=== PATIENT | male | born 1980 | race Caucasian/White ===

== ENCOUNTER 2018-08-02 12:53 | Inpatient (IN) | payer OTHER ==
[2018-08-02 14:08] VITALS: BMI 21.2
--- NOTE | 2018-08-02 17:50 | HP ---
"CIWA Score Nausea/Vomitin-Mild Nausea/No Vomiting Muscle Tremors: 7-Severe,w/o Arm Extended Anxiety: 1-Mildly Anxious Agitation: 4-Moderately Restless Paroxysmal Sweats: 4-Forehead w/Sweat Beads Orientation: 0-Oriented Tacttile Disturbances: 0-None Auditory Disturbances: 0-None Visual Disturbances: 0-None Headache: 0-None Present CIWA-Ar Total Score: 17 - Admission Criteria OASAS Guidelines: Admission for Medically Managed Detox: Requires at least one of the followin. CIWA greater than 12 2. Seizures within the past 24 hours 3. Delirium tremens within the past 24 hours 4. Hallucinations within the past 24 hours 5. Acute intervention needed for co occurring medical disorder 6. Acute intervention needed for co occurring psychiatric disorder 7. Severe withdrawal that cannot be handled at a lower level of care (continued vomiting, continued diarrhea, abnormal vital signs) requiring intravenous medication and/or fluids 8. Patient presents the following: CIWA greater than 12 Admission Criteria Met: Admission criteria met Admission ROS [facility] Chief Complaint: Here for alcohol withdrawal. Allergies/Adverse Reactions: Allergies Allergy/AdvReac Type Severity Reaction Status Date / Time No Known Allergies Allergy Verified 08/02/18 17:25 History of Present Illness: Alcohol use began at age 10. Nicotine use began at age 10. Denies seizures or blackouts. Denies any significant length of sobriety. Nasal abrasion- states fell on nose two days ago. Also injured (L) shoulder and (L) chest which he states does not hurt. Admitted to detox but will send to ER for (L) shoulder evaluation and x-ray, via ambulance. Report given to Dr. Aguirre. Patient is to be returned to [facility] detox unit. Patient returned from ER. X-ray of (L) shoulder bruised but w/o fx. Chest x- ray negative. Patient was medicated w/ percocet and hydrated while in ER. Search Terms: Mayur Bonneros, 1980 Search Date: 08/02/2018 05:43:55 PM The Drug Utilization Report below displays all of the controlled substance prescriptions, if any, that your patient has filled in the last twelve months. The information displayed on this report is compiled from pharmacy submissions to the Department, and accurately reflects the information as submitted by the pharmacies. This report was requested by: Marina Blanton | Reference #: [id number] There are no results for the search terms that you entered. Exam Limitations: No Limitations - Ebola screening Have you traveled outside of the country in the last 21 days: No Have you had contact with anyone from an Ebola affected area: No Have you been sick,other than usual withdrawal symptoms: No Do you have a fever: No - Review of Systems Constitutional: Chills, Diaphoresis, Changes in sleep (Difficulty staying asleep ) EENT: reports: Dental Problems (Front tooth pain r/t fall), Other (Pain in nose r/t fall) Cardiac: reports: No Symptoms Reported GI: reports: Diarrhea, Abdominal cramping : reports: No Symptoms Reported Musculoskeletal: reports: No Symptoms Reported Integumentary: reports: Lesions (Nose) Neuro: reports: Tremors Endocrine: reports: No Symptoms Reported Hematology: reports: No Symptoms Reported Psychiatric: reports: Judgement Intact, Orientated x3, Agitated, Anxious, Depressed (Denies thoughts of harming self or others) Patient History - Patient Medical History Hx Asthma: No Hx Cardiac Disorders: No Hx Hypertension: No Hx Seizures: No Hx Diabetes: No Hx Gastrointestinal Disorders: No Hx Sexually Transmitted Disorders: No Hx Renal Disease (ESRD): No Hx Human Immunodeficiency Virus (HIV): No (2018) - Patient Surgical History Past Surgical History: No - PPD History Previous Implant?: Yes Documented Results: Negative w/o proof Implanted On Prior R Admission?: No PPD to be Administered?: Yes - Smoking Cessation Smoking history: Current every day smoker Have you smoked in the past 12 months: Yes Aproximately how many cigarettes per day: 10 Hx Chewing Tobacco Use: No Initiated information on smoking cessation: Yes 'Breaking Loose' booklet given: 08/02/18 - Substance & Tx. History Hx Alcohol Use: Yes Hx Substance Use: Yes Substance Use Type: Alcohol Hx Substance Use Treatment: Yes (detox 1 year ago) - Substances Abused Alcohol Route: Oral Frequency: Daily Amount used: $30 BEER AND RUM Age of first use: 10 Date of Last Use: 08/02/18 Admission Physical Exam BHS - Vital Signs Vital Signs: Vital Signs - 24 hr 08/02/18 14:07 Temperature 99.1 F Pulse Rate 116 H Respiratory 20 Rate Blood Pressure 139/89 - Physical General Appearance: Yes: Mild Distress, Alcohol on Breath, Tremorous, Irritable , Sweating, Anxious HEENTM: Yes: EOMI (Mild jerking of eyes on lateral gaze), Hearing grossly Normal , Normocephalic, SHALIIN, Pharynx Normal, Lessions (Superficial abraision external nares), Other (Swelling and laceration inner upper lip. No increased erythema. No drainage. Tender to touch) Respiratory: Yes: Lungs Clear, Normal Breath Sounds, No Respiratory Distress Neck: Yes: No masses,lesions,Nodules, Supple Breast: Yes: Breast Exam Deferred Cardiology: Yes: Regular Rhythm, S1, S2, Tachycardia Abdominal: Yes: Soft, Increased Bowel Sounds, Tenderness (RUQ tenderness) Genitourinary: Yes: Within Normal Limits Back: Yes: Normal Inspection Musculoskeletal: Yes: Gait Steady, Joint Stiffness ((L) shoulder w/ stifness, decreased ROM, erythema and echimosos), Other ((L) chest tenderness.) Extremities: Yes: Normal Capillary Refill, Non-Tender, Tremors Neurological: Yes: refueler II-XII NML intact (Mild jerking of eyes on lateral gaze) Integumentary: Yes: Normal Color, Dry, Warm, Erythema (erythema and echimosos (L ) shoulder), Diaphoresis (Increased facial swelling) Lymphatic: Yes: Within Normal Limits - Diagnostic (1) Alcohol dependence with uncomplicated withdrawal Current Visit: Yes Status: Acute (2) Shoulder injury Current Visit: Yes Status: Acute Qualifiers: Encounter type: initial encounter Laterality: left Qualified Code(s): S49.92XA - Unspecified injury of left shoulder and upper arm, initial encounter Comment: X-ray negative for fracture. (3) Tachycardia Current Visit: Yes Status: Acute (4) Nicotine dependence, uncomplicated Current Visit: Yes Status: Chronic Qualifiers: Nicotine product type: cigarettes Qualified Code(s): F17.210 - Nicotine dependence, cigarettes, uncomplicated (5) Nystagmus Current Visit: Yes Status: Acute Comment: On lateral gaze Cleared for Admission S - Detox or Rehab [facility] Level of Care: Medically Managed Detox Regimen/Protocol: Librium [facility] Breath Alcohol Content Breath Alcohol Content: 0.215 Urine Drug Screen - Results Drug Screen Negative: No Urine Drug Screen Results: THC-Marijuana, BZO-Benzodiazepines"
[2018-08-02] MEDS ORDERED: chlordiazePOXIDE HCL 25 MG CAPSULE PO PRN ×2 (18:58→19:04)
[2018-08-02] MEDS ORDERED: MAG HYDROX/AL HYDROX/SIMETH 30 ML UNIT-DOSE CUP PO PRN (18:59)
[2018-08-02] MEDS ORDERED: P-EPHED 60MG/TRIPROLIDI 2.5MG TABLET PO PRN (18:59)
[2018-08-02] MEDS ORDERED: MAGNESIUM HYDROX 2400MG/30ML ORAL SUSPENSION 30 ML CUP PO PRN (18:59)
[2018-08-02] MEDS ORDERED: NICOTINE POLACRILEX 2 MG GUM BC PRN (18:59)
[2018-08-02] MEDS ORDERED: MAGNESIUM CITRATE 300 ML BOTTLE PO PRN (18:59)
[2018-08-02] MEDS ORDERED: LOPERAMIDE HCL 2 MG CAPSULE PO PRN (18:59)
[2018-08-02] MEDS ORDERED: IBUPROFEN 400 MG TABLET (FP) PO PRN ×2 (18:59→23:33)
[2018-08-02] MEDS ORDERED: MENTHOL/PHENOL 1 EACH UD MM PRN (18:59)
[2018-08-02] MEDS ORDERED: chlordiazePOXIDE HCL 25 MG CAPSULE PO SCH (23:00)
[2018-08-02] MEDS: THIAMINE HCL 100 MG TABLET (FP) PO SCH (23:54)
[2018-08-02] MEDS: chlordiazePOXIDE HCL 25 MG CAPSULE PO SCH (23:54)
[2018-08-02] MEDS: BACITRACIN 0.9 GM PACKET TP SCH (23:54)
[2018-08-02] MEDS: MELATONIN 5 MG TABLETS PO PRN (23:58)
[2018-08-03] MEDS: chlordiazePOXIDE HCL 25 MG CAPSULE PO SCH ×6 (01:00→22:16)
[2018-08-03] MEDS ORDERED: chlordiazePOXIDE HCL 25 MG CAPSULE PO PRN (04:42)
[2018-08-03] MEDS ORDERED: chlordiazePOXIDE HCL 25 MG CAPSULE PO SCH ×2 (05:00→23:00)
[2018-08-03] MEDS ORDERED: IBUPROFEN 600 MG TABLET (FP) PO PRN (08:55)
[2018-08-03] MEDS: PRENATAL VITAMINS W/ FOLIC ACID TABLET (FP) PO SCH (10:26)
[2018-08-03] MEDS: NICOTINE 14 MG/24 HOURS TOPICAL PATCH TD SCH (10:27)
[2018-08-03] MEDS: BACITRACIN 0.9 GM PACKET TP SCH ×2 (10:27→22:15)
[2018-08-03] MEDS ORDERED: NAPROXEN 500 MG TABLET (FP) PO ONE (13:15)
--- NOTE | 2018-08-03 14:00 | PN ---
[facility] CIWA - CIWA Score Nausea/Vomitin-No Nausea/No Vomiting Muscle Tremors: 3 Anxiety: 3 Agitation: 1-Slight > Activity Paroxysmal Sweats: 3 Orientation: 0-Oriented Tacttile Disturbances: 2-Mild Itch/Numbness/Burn Auditory Disturbances: 0-None Visual Disturbances: 2-Mild Sensitivity Headache: 0-None Present CIWA-Ar Total Score: 14 BHS Progress Note (SOAP) Subjective: Sweating, Tremors, Body Aches. Objective: PATIENT A & O X 3, OBSERVED AMBULATING ON UNIT. IN NO ACUTE DISTRESS. PATIENT'S LEFT ARM NOTED TO BE IN SLING. PATIENT HAD X-RAYS OF LEFT SHOULDER AND LEFT RIBCAGE DONE YESTERDAY (NO EVIDENCE OF GROSS FRACTURE NOTED IN WITHER AREA). 08/03/18 13:55 Vital Signs Temperature 98.9 F 08/03/18 13:24 Pulse Rate 104 H 08/03/18 13:24 Respiratory Rate 20 08/03/18 13:24 Blood Pressure 142/88 08/03/18 13:24 O2 Sat by Pulse Oximetry (%) ADMISSION LAB RESULTS PENDING. 08/03/18 13:56 Assessment: 08/03/18 13:56 WITHDRAWAL SYMPTOMS. Plan: CONTINUE DETOX. NAPROXEN BID FOR BODY ACHES / PAIN IN LEFT SHOULDER AND LEFT RIBCAGE.
[2018-08-03] MEDS: NAPROXEN 500 MG TABLET (FP) PO SCH (22:16)
[2018-08-03] MEDS: THIAMINE HCL 100 MG TABLET (FP) PO SCH (22:16)
[2018-08-03] MEDS: MELATONIN 5 MG TABLETS PO PRN (22:16)
[2018-08-04] MEDS ORDERED: chlordiazePOXIDE 5 MG CAPSULE PO SCH ×2 (05:00→23:00)
[2018-08-04] MEDS: chlordiazePOXIDE HCL 25 MG CAPSULE PO SCH ×4 (05:44→22:23)
--- NOTE | 2018-08-04 08:32 | EKG ---
Test Reason : Blood Pressure : / mmHG Vent. Rate : 084 BPM Atrial Rate : 084 BPM P-R Int : 170 ms QRS Dur : 092 ms QT Int : 384 ms P-R-T Axes : 064 064 029 degrees QTc Int : 453 ms NORMAL SINUS RHYTHM WITH SINUS ARRHYTHMIA LATERAL INFARCT , AGE UNDETERMINED ABNORMAL ECG NO PREVIOUS ECGS AVAILABLE Confirmed by JEANIE LOONEY MD ([id number]) on 08/04/2018 8:31:44 AM Referred By: Confirmed By:JEANIE LOONEY MD
[2018-08-04] MEDS: BACITRACIN 0.9 GM PACKET TP SCH ×2 (10:29→22:23)
[2018-08-04] MEDS: NAPROXEN 500 MG TABLET (FP) PO SCH ×2 (10:30→22:29)
[2018-08-04] MEDS: NICOTINE 14 MG/24 HOURS TOPICAL PATCH TD SCH (10:30)
[2018-08-04] MEDS: PRENATAL VITAMINS W/ FOLIC ACID TABLET (FP) PO SCH (10:30)
--- NOTE | 2018-08-04 12:58 | PN ---
S CIWA - CIWA Score Nausea/Vomitin Muscle Tremors: 3 Anxiety: 3 Agitation: 3 Paroxysmal Sweats: 3 Orientation: 0-Oriented Tacttile Disturbances: 0-None Auditory Disturbances: 0-None Visual Disturbances: 0-None Headache: 0-None Present CIWA-Ar Total Score: 14 BHS Progress Note (SOAP) Subjective: Tremor, interrupted sleep, c/o left shoulder pain and noted with abrasion to nose stating he fell outside on the street due to alcohol intoxication prior to his admission here. Objective: 08/04/18 12:56 Last Vital Signs Temp Pulse Resp BP Pulse Ox 98.8 F 80 16 109/64 08/04/18 10:00 08/04/18 10:00 08/04/18 10:00 08/04/18 10:00 Assessment: 08/04/18 12:57 Withdrawal symptoms Noted with abrasion on nose Plan: Continue detox Encouraged PO water intake Nose abrasion: continue bacitracin ointment
[2018-08-04] MEDS: THIAMINE HCL 100 MG TABLET (FP) PO SCH (22:23)
[2018-08-05] MEDS: hydrOXYzine PAMOATE 50 MG CAPSULE (FP) PO PRN (01:27)
[2018-08-05] MEDS ORDERED: chlordiazePOXIDE HCL 10 MG CAPSULE PO SCH ×2 (05:00→23:00)
[2018-08-05] MEDS: ACETAMINOPHEN 325 MG TABLET (FP) PO PRN ×2 (05:42→13:33)
[2018-08-05] MEDS: chlordiazePOXIDE 5 MG CAPSULE PO SCH ×4 (05:42→22:11)
[2018-08-05] MEDS: NICOTINE 14 MG/24 HOURS TOPICAL PATCH TD SCH (10:06)
[2018-08-05] MEDS: PRENATAL VITAMINS W/ FOLIC ACID TABLET (FP) PO SCH (10:07)
[2018-08-05] MEDS: NAPROXEN 500 MG TABLET (FP) PO SCH ×2 (10:07→22:11)
[2018-08-05] MEDS: BACITRACIN 0.9 GM PACKET TP SCH ×2 (10:07→22:11)
[2018-08-05 10:23] LABS: ALBUMIN 3.8 g/dl (3.4-5.0); ALK PHOS 88 U/L (45-117); ANION GAP 7 MMOL/L (8-16); BILIRUBIN,TOTAL 0.4 mg/dL (0.2-1); BLOOD UREA NITROGEN 6 mg/dL (7-18); CALCIUM 9.2 mg/dL (8.5-10.1); CHLORIDE 107 mmol/L (98-107); CO2 27 mmol/L (21-32); CREATININE 0.6 mg/dL (0.55-1.3); GLUCOSE,RANDOM 98 mg/dL (74-106); POTASSIUM 3.8 mmol/L (3.5-5.1); SGOT/AST 86 U/L (15-37); SGPT/ALT 102 U/L (13-61); SODIUM 141 mmol/L (136-145); TOT PROT 6.5 g/dl (6.4-8.2)
[2018-08-05 10:32] LABS: BASO % 0.9 % (0-2.0); EOS % 1.3 % (0-4.5); HEMATOCRIT 43.1 % (35.4-49); LYMPH % 15.6 % (8-40); MCH 35.6 pg (25.7-33.7); MCHC 34.9 g/dl (32.0-35.9); MEAN PLT VOLUME 7.8 fl (7.5-11.1); MONO % 9.1 % (3.8-10.2); NEUT % 73.1 % (42.8-82.8); PLATELET COUNT 334 K/MM3 (134-434); RBC 4.23 M/mm3 (4.00-5.60); WHITE BLOOD COUNT 6.1 K/mm3 (4.0-10.0)
[2018-08-05] MEDS: LIDOCAINE 5% TOPICAL PATCH TP SCH (15:12)
--- NOTE | 2018-08-05 15:28 | PN ---
S Progress Note (SOAP) Subjective: feeling better less tremor mild gi distress sweating Objective: 08/05/18 15:32 Vital Signs Temperature 98.2 F 08/05/18 14:00 Pulse Rate 109 H 08/05/18 14:00 Respiratory Rate 18 08/05/18 14:00 Blood Pressure 135/89 08/05/18 14:00 O2 Sat by Pulse Oximetry (%) Laboratory Last Values WBC 6.1 K/mm3 (4.0-10.0) 08/05/18 08:15 RBC 4.23 M/mm3 (4.00-5.60) 08/05/18 08:15 Hgb 15.0 GM/dL (11.7-16.9) 08/05/18 08:15 Hct 43.1 % (35.4-49) 08/05/18 08:15 MCV 102.0 fl (80-96) H 08/05/18 08:15 MCH 35.6 pg (25.7-33.7) H 08/05/18 08:15 MCHC 34.9 g/dl (32.0-35.9) 08/05/18 08:15 RDW 13.0 % (11.9-15.9) 08/05/18 08:15 Plt Count 334 K/MM3 (134-434) 08/05/18 08:15 MPV 7.8 fl (7.5-11.1) 08/05/18 08:15 Absolute Neuts (auto) 4.5 K/mm3 (1.5-8.0) 08/05/18 08:15 Neutrophils % 73.1 % (42.8-82.8) 08/05/18 08:15 Lymphocytes % 15.6 % (8-40) 08/05/18 08:15 Monocytes % 9.1 % (3.8-10.2) 08/05/18 08:15 Eosinophils % 1.3 % (0-4.5) 08/05/18 08:15 Basophils % 0.9 % (0-2.0) 08/05/18 08:15 Nucleated RBC % 0 % (0-0) 08/05/18 08:15 Sodium 141 mmol/L (136-145) 08/05/18 08:15 Potassium 3.8 mmol/L (3.5-5.1) 08/05/18 08:15 Chloride 107 mmol/L (98-107) 08/05/18 08:15 Carbon Dioxide 27 mmol/L (21-32) 08/05/18 08:15 Anion Gap 7 MMOL/L (8-16) L 08/05/18 08:15 BUN 6 mg/dL (7-18) L 08/05/18 08:15 Creatinine 0.6 mg/dL (0.55-1.3) 08/05/18 08:15 Creat Clearance w eGFR > 60 (>60) 08/05/18 08:15 Random Glucose 98 mg/dL (74-106) 08/05/18 08:15 Calcium 9.2 mg/dL (8.5-10.1) 08/05/18 08:15 Total Bilirubin 0.4 mg/dL (0.2-1) 08/05/18 08:15 AST 86 U/L (15-37) H 08/05/18 08:15 ALT 102 U/L (13-61) H 08/05/18 08:15 Alkaline Phosphatase 88 U/L (45-117) 08/05/18 08:15 Total Protein 6.5 g/dl (6.4-8.2) 08/05/18 08:15 Albumin 3.8 g/dl (3.4-5.0) 08/05/18 08:15 RPR Titer Nonreactive (NONREACTIVE) 08/05/18 08:15 lab noted Assessment: 08/05/18 15:33 withdrawal sx Plan: continue detox
[2018-08-05] MEDS ORDERED: LIDOCAINE PATCH REMOVAL MC SCH (22:00)
[2018-08-05] MEDS: THIAMINE HCL 100 MG TABLET (FP) PO SCH (22:11)
[2018-08-05] MEDS: MELATONIN 5 MG TABLETS PO PRN (22:13)
[2018-08-06] MEDS: ACETAMINOPHEN 325 MG TABLET (FP) PO PRN (03:25)
[2018-08-06] MEDS ORDERED: chlordiazePOXIDE HCL 10 MG CAPSULE PO SCH (05:00)
[2018-08-06 09:16] VITALS: BP 98/69; PULSE 64; TEMP 96.2
[2018-08-06] MEDS: PRENATAL VITAMINS W/ FOLIC ACID TABLET (FP) PO SCH (09:33)
[2018-08-06] MEDS: BACITRACIN 0.9 GM PACKET TP SCH (09:33)
[2018-08-06] MEDS: NICOTINE 14 MG/24 HOURS TOPICAL PATCH TD SCH (09:34)
[2018-08-06] MEDS: NAPROXEN 500 MG TABLET (FP) PO SCH (09:34)
[2018-08-06] MEDS: LIDOCAINE 5% TOPICAL PATCH TP SCH (09:34)
[2018-08-06] MEDS: hydrOXYzine PAMOATE 50 MG CAPSULE (FP) PO PRN (09:35)
--- NOTE | 2018-08-06 17:16 | DS ---
[facility] Detox Discharge Summary Admission Date: 08/02/18 Discharge Date: 08/06/18 - History Present History: Alcohol Dependence Additional Comments: PATIENT DECLINED AFTERCARE REFERRAL AND ELECTS TO GO HOME. [facility]' ([place], [place]) RECOMMENDED TO PATIENT POSSIBLE ALTERNATE AFTERCARE OPTION. COPIES OF REPORTS PERTAINING TO X-RAYS OF LEFT SHOULDER AND LEFT RIBCAGE GIVEN TO PATIENT AT TIME OF DISCHARGE FROM DETOX UNIT. PATIENT WAS DISCHARGED FROM DETOX UNIT IN STABLE MEDICAL CONDITION. Pertinent Past History: Nystagmus, Nicotine Dependence, History Of Left Shoulder Injury, History Of Tachycardia. - Physical Exam Results Vital Signs: Vital Signs Temperature 96.2 F L 08/06/18 09:15 Pulse Rate 64 08/06/18 09:15 Respiratory Rate 18 08/06/18 09:15 Blood Pressure 98/69 08/06/18 09:15 O2 Sat by Pulse Oximetry (%) Pertinent Admission Physical Exam Findings: WITHDRAWAL SYMPTOMS. Laboratory Tests 08/05/18 08/05/18 08/05/18 08:15 08:15 08:15 WBC 6.1 RBC 4.23 Hgb 15.0 Hct 43.1 MCV 102.0 H MCH 35.6 H MCHC 34.9 RDW 13.0 Plt Count 334 MPV 7.8 Absolute Neuts (auto) 4.5 Neutrophils % 73.1 Lymphocytes % 15.6 Monocytes % 9.1 Eosinophils % 1.3 Basophils % 0.9 Nucleated RBC % 0 Sodium 141 Potassium 3.8 Chloride 107 Carbon Dioxide 27 Anion Gap 7 L BUN 6 L Creatinine 0.6 Creat Clearance w eGFR > 60 Random Glucose 98 Calcium 9.2 Total Bilirubin 0.4 AST 86 H ALT 102 H Alkaline Phosphatase 88 Total Protein 6.5 Albumin 3.8 RPR Titer Nonreactive LABS NOTED. - Treatment Hospital Course: Detox Protocol Followed, Detoxed Safely, Responded well, Discharged Condition Good Patient has Accepted a Rehab Referral to: PATIENT DECLINES AFTERCARE REFERRAL. - Medication Discharge Medications: Ambulatory Orders NK [No Known Home Medication] 08/02/18 - Diagnosis (1) Alcohol dependence with uncomplicated withdrawal Status: Acute (2) Nystagmus Status: Acute (3) Shoulder injury Status: Acute Qualifiers: Encounter type: initial encounter Laterality: left Qualified Code(s): S49.92XA - Unspecified injury of left shoulder and upper arm, initial encounter (4) Tachycardia Status: Acute (5) Nicotine dependence, uncomplicated Status: Chronic Qualifiers: Nicotine product type: cigarettes Qualified Code(s): F17.210 - Nicotine dependence, cigarettes, uncomplicated - AMA Did Patient Leave Against Medical Advice: No
== END 2018-08-06 10:30 | disposition home or self-care (01) | DRG 775 ==
LOC: YASAS 12:53 → Y3N 23:25
PROC: HZ2ZZZZ Detoxification Services for Substance Abuse Treatment (ICD-10-PCS; principal; 2018-08-02)
DX: F10.230 Alcohol dependence with withdrawal, uncomplicated (principal); F17.210 Nicotine dependence, cigarettes, uncomplicated; H55.00 Unspecified nystagmus; R00.0 Tachycardia, unspecified; S49.82XA Other specified injuries of left shoulder and upper arm, initial encounter; S29.8XXA Other specified injuries of thorax, initial encounter; S00.31XA Abrasion of nose, initial encounter; W18.39XA Other fall on same level, initial encounter; Y93.89 Activity, other specified; Y92.414 Local residential or business street as the place of occurrence of the external cause; Y99.8 Other external cause status
CPT/HCPCS: 36415; 80053; 85025; 86593; 93005; 93010

== ENCOUNTER 2018-08-02 20:01 | Emergency (ER) | payer OTHER ==
[2018-08-02 20:07] VITALS: BP 148/86; PULSE 121; TEMP 98.9; BMI 30.2
--- NOTE | 2018-08-02 20:08 | PDOC ---
History of Present Illness - General History Source: Patient Exam Limitations: No Limitations - History of Present Illness Initial Comments: 08/02/18 21:20 The patient is a 37 year old male, from [facility], with a significant PMH of EtOH abuse, who presents to the emergency department for evaluation s/p fall. The patient states he was walking down the street when he tripped and fell landing on his left side/shoulder. The patient denies any head injury or loss of consciousness. Denies any preceding nausea, chest pain, palpitations, lightheadedness, dizziness or shortness of breath. The patient at presentation endorses left shoulder pain rated 7/10 in intensity and left rib pain. The patient states his last drink was 2 hours ago. Denies any numbness, tingling or loss of sensation. Denies any neck or back pain. Denies any bowel or bladder incontinence. Denies any nausea or vomiting after falling. The patient denies chest pain, shortness of breath, headache and dizziness. Denies fever, chills, nausea, vomit, diarrhea and constipation. Denies dysuria, frequency, urgency and hematuria. Allergies: NKA <Anthony Lee - Last Filed: 08/02/18 21:20> <Crystal Kaur - Last Filed: 08/04/18 06:17> - General Chief Complaint: Alcohol intoxication Stated Complaint: INTOX Time Seen by Provider: 08/02/18 20:06 Past History <Anthony Lee - Last Filed: 08/02/18 21:20> - Past Medical History Asthma: No Cardiac Disorders: No Diabetes: No GI Disorders: No HTN: No Seizures: No - Suicide/Smoking/Psychosocial Hx Smoking History: Unknown if ever smoked Have you smoked in the past 12 months: No Number of Cigarettes Smoked Daily: 10 Information on smoking cessation initiated: No 'Breaking Loose' booklet given: 08/02/18 Hx Alcohol Use: Yes Drug/Substance Use Hx: No Substance Use Type: Alcohol Hx Substance Use Treatment: Yes (detox 1 year ago) <Crystal Kaur - Last Filed: 08/04/18 06:17> - Past Medical History Allergies/Adverse Reactions: Allergies Allergy/AdvReac Type Severity Reaction Status Date / Time No Known Allergies Allergy Verified 08/02/18 17:25 Home Medications: Ambulatory Orders NK [No Known Home Medication] 08/02/18 Review of Systems - Review of Systems Comments:: 08/02/18 21:20 GENERAL/CONSTITUTIONAL: No fever or chills. No weakness. HEAD, EYES, EARS, NOSE AND THROAT: No change in vision. No ear pain or discharge. No sore throat. CARDIOVASCULAR: No chest pain or shortness of breath. RESPIRATORY: No cough, wheezing, or hemoptysis. GASTROINTESTINAL: No nausea, vomiting, diarrhea or constipation. GENITOURINARY: No dysuria, frequency, or change in urination. MUSCULOSKELETAL: (+) Left shoulder pain. (+) Left rib pain. No neck or back pain. SKIN: No rash NEUROLOGIC: No headache, vertigo, loss of consciousness, or change in strength/ sensation. ENDOCRINE: No increased thirst. No abnormal weight change. HEMATOLOGIC/LYMPHATIC: No anemia, easy bleeding, or history of blood clots. ALLERGIC/IMMUNOLOGIC: No hives or skin allergy. <Anthony Lee - Last Filed: 08/02/18 21:20> *Physical Exam - Vital Signs Last Vital Signs Temp Pulse Resp BP Pulse Ox 98.9 F 121 H 18 148/86 97 08/02/18 20:06 08/02/18 20:06 08/02/18 20:06 08/02/18 20:06 08/02/18 20:06 - Physical Exam Comments: 08/02/18 21:21 GENERAL: Awake, alert, and fully oriented, in no acute distress HEAD: No signs of trauma EYES: PERRLA, EOMI, sclera anicteric, conjunctiva clear ENT: Auricles normal inspection, hearing grossly normal, nares patent, oropharynx clear without exudates. Moist mucosa NECK: Normal ROM, supple, no lymphadenopathy, JVD, or masses LUNGS: Breath sounds equal, clear to auscultation bilaterally. No wheezes, and no crackles HEART: (+) Tachycardia. Regular rhythm, normal S1 and S2, no murmurs, rubs or gallops ABDOMEN: Soft, nontender, normoactive bowel sounds. No guarding, no rebound. No masses EXTREMITIES: (+) Left shoulder ecchymosis noted purple and red. (+) Left ribs tenderness to palpation. No clubbing or cyanosis. No cords, erythema. NEUROLOGICAL: Cranial nerves II through XII grossly intact. Normal speech. SKIN: Warm, Dry, normal turgor, no rashes or lesions noted. <Anthony Lee - Last Filed: 08/02/18 21:20> - Vital Signs Last Vital Signs Temp Pulse Resp BP Pulse Ox 98.9 F 121 H 18 148/86 97 08/02/18 20:06 08/02/18 20:06 08/02/18 20:06 08/02/18 20:06 08/02/18 20:06 <Crystal Kaur - Last Filed: 08/04/18 06:17> Moderate Sedation - Procedure Monitoring Vital Signs: Procedure Monitoring Vital Signs Temperature 98.9 F 08/02/18 20:06 Pulse Rate 121 H 08/02/18 20:06 Respiratory Rate 18 08/02/18 20:06 Blood Pressure 148/86 08/02/18 20:06 O2 Sat by Pulse Oximetry (%) 97 08/02/18 20:06 <Anthony Lee - Last Filed: 08/02/18 21:20> - Procedure Monitoring Vital Signs: Procedure Monitoring Vital Signs Temperature 98.9 F 08/02/18 20:06 Pulse Rate 121 H 08/02/18 20:06 Respiratory Rate 18 08/02/18 20:06 Blood Pressure 148/86 08/02/18 20:06 O2 Sat by Pulse Oximetry (%) 97 08/02/18 20:06 <Crystal Kaur - Last Filed: 08/04/18 06:17> Medical Decision Making - Medical Decision Making 08/02/18 21:41 Pt will be hydrated as he has tachycardia; we will also treat pain with percocet. CXR is normal ribs appear normal. Left shoulder bruised but no bony fx. 08/04/18 06:17 Back to [facility]. <Crystal Kaur - Last Filed: 08/04/18 06:17> *DC/Admit/Observation/Transfer - Attestations Scribe Attestion: 08/02/18 21:22 Documentation prepared by Anthony Lee, acting as medical insurance claims processor for Crystal Kaur MD. <Anthony Lee - Last Filed: 08/02/18 21:20> <Crystal Kaur - Last Filed: 08/04/18 06:17> Diagnosis at time of Disposition: Desire for detoxification - Discharge Dispostion Disposition: HOME
[2018-08-02] MEDS ORDERED: LIDOCAINE 5% TOPICAL PATCH TP ONE (20:40)
[2018-08-02] MEDS ORDERED: FOLIC ACID INJECTION - 1 MG, THIAMINE HCL 100 MG, MULTIVIT INJECTION ADULT 10 ML in SOD... IVPB ONE (21:15)
[2018-08-02] MEDS ORDERED: LIDOCAINE 5% TOPICAL PATCH ONE (21:23)
[2018-08-02] MEDS ORDERED: LIDOCAINE PATCH REMOVAL MC SCH (22:00)
== END 2018-08-02 23:09 | disposition home or self-care (01) ==
LOC: JER 20:01
PROC: 3E033GC Introduction of Other Therapeutic Substance into Peripheral Vein, Percutaneous Approach (ICD-10-PCS; principal; 2018-08-02)
DX: S49.82XA Other specified injuries of left shoulder and upper arm, initial encounter (principal); W18.39XA Other fall on same level, initial encounter; Y93.89 Activity, other specified; Y92.488 Other paved roadways as the place of occurrence of the external cause; Y99.8 Other external cause status; F10.10 Alcohol abuse, uncomplicated; Z59.0 Homelessness
CPT/HCPCS: 71101-TC-LT-FY; 73030-TC-LT-FY; 96365; 96366; 99281-25; J7030

== ENCOUNTER 2018-12-27 16:31 | Inpatient (IN) | payer OTHER ==
[2018-12-27 20:23] VITALS: BMI 24.1
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
[2018-12-27] MEDS ORDERED: IBUPROFEN 400 MG TABLET (FP) PO PRN (22:02)
[2018-12-27] MEDS ORDERED: guaiFENesin 200 MG/10 ML 10 ML UNIT-DOSE CUPS PO PRN (22:02)
[2018-12-27] MEDS ORDERED: ACETAMINOPHEN 325 MG TABLET (FP) PO PRN ×2 (22:02)
[2018-12-27] MEDS ORDERED: MAGNESIUM HYDROX 2400MG/30ML ORAL SUSPENSION 30 ML CUP PO PRN (22:02)
[2018-12-27] MEDS ORDERED: chlordiazePOXIDE HCL 25 MG CAPSULE PO PRN (22:02)
[2018-12-27] MEDS ORDERED: MAGNESIUM CITRATE 300 ML BOTTLE PO PRN (22:02)
[2018-12-27] MEDS ORDERED: P-EPHED 60MG/TRIPROLIDI 2.5MG TABLET PO PRN (22:02)
[2018-12-27] MEDS ORDERED: NICOTINE POLACRILEX 2 MG GUM BUC PRN (22:02)
[2018-12-27] MEDS ORDERED: ONDANSETRON *ODT* 4 MG TABLET SL PRN (22:02)
[2018-12-27] MEDS ORDERED: BISMUTH SUBSALICYLATE 524 MG/30 ML UD PO PRN (22:02)
[2018-12-27] MEDS ORDERED: DICYCLOMINE HCL 10 MG CAPSULE PO PRN (22:02)
[2018-12-27] MEDS ORDERED: MENTHOL/PHENOL 1 EACH UD MM PRN (22:02)
[2018-12-27] MEDS ORDERED: MAG HYDROX/AL HYDROX/SIMETH 30 ML UNIT-DOSE CUP PO PRN (22:02)
[2018-12-27] MEDS: chlordiazePOXIDE HCL 25 MG CAPSULE PO SCH (23:50)
[2018-12-28] MEDS: chlordiazePOXIDE HCL 25 MG CAPSULE PO SCH ×4 (05:57→22:08)
[2018-12-28] MEDS: PRENATAL VITAMINS W/ FOLIC ACID TABLET (FP) PO SCH (10:25)
[2018-12-28] MEDS: NICOTINE 14 MG/24 HOURS TOPICAL PATCH TD SCH (10:26)
[2018-12-28 11:05] LABS: BILIRUBIN,TOTAL 0.9 mg/dL (0.2-1); BLOOD UREA NITROGEN 15.3 mg/dL (7-18); CALCIUM 9.1 mg/dL (8.5-10.1); CREATININE 0.8 mg/dL (0.55-1.3)
--- NOTE | 2018-12-28 11:30 | CONSULT ---
[facility] Psychiatric Consult - Data Date of interview: 12/28/18 Admission source: [facility] Identifying data: Readmission to [facility] for this 38 y/o male self- referred for detoxification (alcohol, cannabis). Examined at [address] [place] [address]. Patient is single, a father of two, homeless, unemployed and supported on food stamps. Substance Abuse History: Discussed in session. Patient explains that alcohol is his main substance of abuse. Admits to sporadic use of cannabis and xanax. Details in current [facility] report as follows : Smoking history: Current every day smoker. Have you smoked in the past 12 months: Yes. Aproximately how many cigarettes per day: 10. Cigars Per Day: 0. Hx Chewing Tobacco Use: No. Initiated information on smoking cessation: Yes. 'Breaking Loose' booklet given : 12/27/18. - Substance & Tx. History. Hx Alcohol Use: Yes. Hx Substance Use : Yes. Substance Use Type: Alcohol, Marijuana. Hx Substance Use Treatment: Yes ([facility] - Substances abused. Alcohol. Substance route: Oral. Frequency: Daily. Amount used: 1 LITER. Age of first use: 19. Date of last use: 12/27/18 Medical History: Remarkable for hypertension. Psychiatric History: Patient denies history of psychiatric hospitalizations or OPD care. Mr Mingo denies history of suicide attempts. Physical/Sexual Abuse/Trauma History: Patient denies. Additional Comment: Urine drug screen results: THC-Marijuana, MIRACLE-Cocaine. Noted. Mental Status Exam - Mental Status Exam Alert and Oriented to: Time, Place, Person Cognitive Function: Grossly Intact Patient Appearance: Unkempt, Disheveled Mood: Withdrawn, Anxious Affect: Mood Congruent, Constricted Patient Behavior: Fatigued, Cooperative Speech Pattern: Slurred (coherent in mosotho ; limited pitcairn islander comprehension) Voice Loudness: Normal Thought Process: Goal Oriented Thought Disorder: Not Present Hallucinations: Denies Suicidal Ideation: Denies Homicidal Ideation: Denies Insight/Judgement: Poor Sleep: Fair Appetite: Good Muscle strength/Tone: Normal Gait/Station: Other (not observed ; in bed for duration of interview) Psychiatric Findings - Problem List ([place] 1, 2,3) (1) Alcohol dependence with uncomplicated withdrawal Current Visit: Yes Status: Acute (2) Nicotine dependence, uncomplicated Current Visit: Yes Status: Chronic Qualifiers: Nicotine product type: cigarettes Qualified Code(s): F17.210 - Nicotine dependence, cigarettes, uncomplicated (3) Substance induced mood disorder Current Visit: Yes Status: Suspected - Initial Treatment Plan Initial Treatment Plan: Psychoeducation. Sleep hygiene. Detoxification in progress. Observation.
[2018-12-28 11:56] LABS: HEMATOCRIT 44.4 % (35.4-49); HEMOGLOBIN 15.2 GM/dL (11.7-16.9); MCH 33.6 pg (25.7-33.7); MCHC 34.3 g/dl (32.0-35.9); MEAN PLT VOLUME 7.9 fl (7.5-11.1); RBC 4.53 M/mm3 (4.00-5.60); RDW 12.9 % (11.9-15.9); WHITE BLOOD COUNT 5.6 K/mm3 (4.0-10.0)
[2018-12-28] MEDS ORDERED: PNEUMOC 13-VAL CONJ-DIP CRM/PF 0.5 ML DISP.SYRIN IM ONE (12:00)
--- NOTE | 2018-12-28 12:47 | PN ---
S CIWA - CIWA Score Nausea/Vomitin-No Nausea/No Vomiting Muscle Tremors: 3 Anxiety: 2 Agitation: 2 Paroxysmal Sweats: 3 Orientation: 0-Oriented Tacttile Disturbances: 0-None Auditory Disturbances: 0-None Visual Disturbances: 0-None Headache: 2-Mild CIWA-Ar Total Score: 12 S Progress Note (SOAP) Subjective: c/o sweats, headache, anxiety, shakes, and interrupted sleep. Objective: 12/28/18 12:46 Vital Signs 12/28/18 12/28/18 06:20 09:52 Temperature 98 F 97.7 F Pulse Rate 90 98 H Respiratory 20 18 Rate Blood Pressure 124/65 123/79 Lab Results WBC 5.6 K/mm3 (4.0-10.0) 12/28/18 08:00 RBC 4.53 M/mm3 (4.00-5.60) 12/28/18 08:00 Hgb 15.2 GM/dL (11.7-16.9) 12/28/18 08:00 Hct 44.4 % (35.4-49) 12/28/18 08:00 MCV 98.0 fl (80-96) H 12/28/18 08:00 MCHC 34.3 g/dl (32.0-35.9) 12/28/18 08:00 RDW 12.9 % (11.9-15.9) 12/28/18 08:00 Sodium 137 mmol/L (136-145) 12/28/18 08:00 Potassium 4.0 mmol/L (3.5-5.1) 12/28/18 08:00 Chloride 101 mmol/L (98-107) 12/28/18 08:00 Carbon Dioxide 28 mmol/L (21-32) 12/28/18 08:00 Anion Gap 8 MMOL/L (8-16) 12/28/18 08:00 BUN 15.3 mg/dL (7-18) 12/28/18 08:00 Creatinine 0.8 mg/dL (0.55-1.3) 12/28/18 08:00 Random Glucose 99 mg/dL (74-106) 12/28/18 08:00 Calcium 9.1 mg/dL (8.5-10.1) 12/28/18 08:00 Labs noted. Assessment: 12/28/18 12:46 AOX3, in no respiratory distress, full rom, ambulating in the unit. Withdrawal symptoms. Plan: continue detox. increase fluids.
[2018-12-28 17:01] LABS: PLATELET COUNT 257 K/MM3 (134-434)
[2018-12-28] MEDS: METHOCARBAMOL 500 MG TABLET PO PRN (19:41)
[2018-12-28] MEDS: THIAMINE HCL 100 MG TABLET (FP) PO SCH (22:08)
[2018-12-28] MEDS: MELATONIN 5 MG TABLETS PO PRN (22:09)
[2018-12-28] MEDS: hydrOXYzine PAMOATE 25 MG CAPSULE (FP) PO PRN (22:10)
[2018-12-29] MEDS: chlordiazePOXIDE HCL 25 MG CAPSULE PO SCH ×3 (06:21→17:24)
[2018-12-29] MEDS: NICOTINE 14 MG/24 HOURS TOPICAL PATCH TD SCH (10:36)
[2018-12-29] MEDS: PRENATAL VITAMINS W/ FOLIC ACID TABLET (FP) PO SCH (10:36)
--- NOTE | 2018-12-29 11:04 | PN ---
[facility] CIWA - CIWA Score Nausea/Vomitin-Mild Nausea/No Vomiting Muscle Tremors: 3 Anxiety: 3 Agitation: 2 Paroxysmal Sweats: 1-Minimal Palms Moist Orientation: 0-Oriented Tacttile Disturbances: 1-Very Mild Itch/Numbness Auditory Disturbances: 0-None Visual Disturbances: 0-None Headache: 0-None Present CIWA-Ar Total Score: 11 S Progress Note (SOAP) Subjective: anxious tremor c/o body aches encourage to take tylenal or motrin for pain offer lidocain patch to lower spin patient refused Objective: 12/29/18 11:03 Vital Signs Temperature 97.3 F L 12/29/18 09:20 Pulse Rate 85 12/29/18 09:20 Respiratory Rate 18 12/29/18 09:20 Blood Pressure 134/81 12/29/18 09:20 O2 Sat by Pulse Oximetry (%) Laboratory Last Values WBC 5.6 K/mm3 (4.0-10.0) 12/28/18 08:00 RBC 4.53 M/mm3 (4.00-5.60) 12/28/18 08:00 Hgb 15.2 GM/dL (11.7-16.9) 12/28/18 08:00 Hct 44.4 % (35.4-49) 12/28/18 08:00 MCV 98.0 fl (80-96) H 12/28/18 08:00 MCH 33.6 pg (25.7-33.7) 12/28/18 08:00 MCHC 34.3 g/dl (32.0-35.9) 12/28/18 08:00 RDW 12.9 % (11.9-15.9) 12/28/18 08:00 Plt Count 257 K/MM3 (134-434) D 12/28/18 08:00 MPV 7.9 fl (7.5-11.1) 12/28/18 08:00 Sodium 137 mmol/L (136-145) 12/28/18 08:00 Potassium 4.0 mmol/L (3.5-5.1) 12/28/18 08:00 Chloride 101 mmol/L (98-107) 12/28/18 08:00 Carbon Dioxide 28 mmol/L (21-32) 12/28/18 08:00 Anion Gap 8 MMOL/L (8-16) 12/28/18 08:00 BUN 15.3 mg/dL (7-18) 12/28/18 08:00 Creatinine 0.8 mg/dL (0.55-1.3) 12/28/18 08:00 Est GFR (CKD-EPI)AfAm 130.42 12/28/18 08:00 Est GFR (CKD-EPI)NonAf 112.53 12/28/18 08:00 Random Glucose 99 mg/dL (74-106) 12/28/18 08:00 Calcium 9.1 mg/dL (8.5-10.1) 12/28/18 08:00 Total Bilirubin 0.9 mg/dL (0.2-1) 12/28/18 08:00 AST 73 U/L (15-37) H 12/28/18 08:00 ALT 44 U/L (13-61) 12/28/18 08:00 Alkaline Phosphatase 115 U/L (45-117) 12/28/18 08:00 Total Protein 7.0 g/dl (6.4-8.2) 12/28/18 08:00 Albumin 4.0 g/dl (3.4-5.0) 12/28/18 08:00 RPR Titer Nonreactive (NONREACTIVE) 12/28/18 08:00 lab noted Assessment: 12/29/18 11:03 alcohol withdrawal sx Plan: continue alcohol detox
[2018-12-29] MEDS ORDERED: PNEUMOCOCCAL 23 VACCINE 0.5 ML VIAL IM ONE (12:00)
[2018-12-29] MEDS: hydrOXYzine PAMOATE 25 MG CAPSULE (FP) PO PRN ×2 (17:24→22:24)
[2018-12-29] MEDS: METHOCARBAMOL 500 MG TABLET PO PRN (17:29)
[2018-12-29] MEDS: chlordiazePOXIDE HCL 10 MG CAPSULE PO SCH (22:22)
[2018-12-29] MEDS: THIAMINE HCL 100 MG TABLET (FP) PO SCH (22:22)
[2018-12-29] MEDS: MELATONIN 5 MG TABLETS PO PRN (22:22)
[2018-12-29] MEDS ORDERED: chlordiazePOXIDE HCL 10 MG CAPSULE PO PRN (23:00)
[2018-12-30] MEDS: chlordiazePOXIDE HCL 10 MG CAPSULE PO SCH ×2 (06:09→10:28)
--- NOTE | 2018-12-30 09:35 | PN ---
S CIWA - CIWA Score Nausea/Vomitin-Mild Nausea/No Vomiting Muscle Tremors: 3 Anxiety: 2 Agitation: 2 Paroxysmal Sweats: 1-Minimal Palms Moist Orientation: 0-Oriented Tacttile Disturbances: 1-Very Mild Itch/Numbness Auditory Disturbances: 0-None Visual Disturbances: 0-None Headache: 0-None Present CIWA-Ar Total Score: 10 BHS Progress Note (SOAP) Subjective: tremor anxious low energy preferring stay on bed resting Objective: 12/30/18 09:34 Vital Signs Temperature 97.8 F 12/30/18 09:09 Pulse Rate 83 12/30/18 09:09 Respiratory Rate 18 12/30/18 09:09 Blood Pressure 126/76 12/30/18 09:09 O2 Sat by Pulse Oximetry (%) Laboratory Last Values WBC 5.6 K/mm3 (4.0-10.0) 12/28/18 08:00 RBC 4.53 M/mm3 (4.00-5.60) 12/28/18 08:00 Hgb 15.2 GM/dL (11.7-16.9) 12/28/18 08:00 Hct 44.4 % (35.4-49) 12/28/18 08:00 MCV 98.0 fl (80-96) H 12/28/18 08:00 MCH 33.6 pg (25.7-33.7) 12/28/18 08:00 MCHC 34.3 g/dl (32.0-35.9) 12/28/18 08:00 RDW 12.9 % (11.9-15.9) 12/28/18 08:00 Plt Count 257 K/MM3 (134-434) D 12/28/18 08:00 MPV 7.9 fl (7.5-11.1) 12/28/18 08:00 Sodium 137 mmol/L (136-145) 12/28/18 08:00 Potassium 4.0 mmol/L (3.5-5.1) 12/28/18 08:00 Chloride 101 mmol/L (98-107) 12/28/18 08:00 Carbon Dioxide 28 mmol/L (21-32) 12/28/18 08:00 Anion Gap 8 MMOL/L (8-16) 12/28/18 08:00 BUN 15.3 mg/dL (7-18) 12/28/18 08:00 Creatinine 0.8 mg/dL (0.55-1.3) 12/28/18 08:00 Est GFR (CKD-EPI)AfAm 130.42 12/28/18 08:00 Est GFR (CKD-EPI)NonAf 112.53 12/28/18 08:00 Random Glucose 99 mg/dL (74-106) 12/28/18 08:00 Calcium 9.1 mg/dL (8.5-10.1) 12/28/18 08:00 Total Bilirubin 0.9 mg/dL (0.2-1) 12/28/18 08:00 AST 73 U/L (15-37) H 12/28/18 08:00 ALT 44 U/L (13-61) 12/28/18 08:00 Alkaline Phosphatase 115 U/L (45-117) 12/28/18 08:00 Total Protein 7.0 g/dl (6.4-8.2) 12/28/18 08:00 Albumin 4.0 g/dl (3.4-5.0) 12/28/18 08:00 RPR Titer Nonreactive (NONREACTIVE) 12/28/18 08:00 HIV 1&2 Antibody Screen Negative 12/29/18 05:55 HIV P24 Antigen Negative 12/29/18 05:55 lab noted Assessment: 12/30/18 09:34 alcohol withdrawal sx Plan: continue alcohol detox
[2018-12-30] MEDS: PRENATAL VITAMINS W/ FOLIC ACID TABLET (FP) PO SCH (10:27)
[2018-12-30] MEDS: NICOTINE 14 MG/24 HOURS TOPICAL PATCH TD SCH (10:27)
[2018-12-30 13:48] VITALS: BP 115/66; PULSE 64; TEMP 97.9
--- NOTE | 2018-12-30 14:20 | DS ---
[facility] Detox Discharge Summary Admission Date: 12/27/18 Discharge Date: 12/30/18 - History Present History: Alcohol Dependence Additional Comments: 38 years old male admitted on 12/27/18 for alcohol withdrawal stabilization feeling better after lunch and napping alert no acute distress preferring to go [facility] today to begin his alcohol rehab journey Pertinent Past History: [facility] Physical Exam Results Vital Signs: Vital Signs Temperature 97.9 F 12/30/18 13:47 Pulse Rate 64 12/30/18 13:47 Respiratory Rate 18 12/30/18 13:47 Blood Pressure 115/66 12/30/18 13:47 O2 Sat by Pulse Oximetry (%) Pertinent Admission Physical Exam Findings: alcohol withdrawal sx Laboratory Last Values WBC 5.6 K/mm3 (4.0-10.0) 12/28/18 08:00 RBC 4.53 M/mm3 (4.00-5.60) 12/28/18 08:00 Hgb 15.2 GM/dL (11.7-16.9) 12/28/18 08:00 Hct 44.4 % (35.4-49) 12/28/18 08:00 MCV 98.0 fl (80-96) H 12/28/18 08:00 MCH 33.6 pg (25.7-33.7) 12/28/18 08:00 MCHC 34.3 g/dl (32.0-35.9) 12/28/18 08:00 RDW 12.9 % (11.9-15.9) 12/28/18 08:00 Plt Count 257 K/MM3 (134-434) D 12/28/18 08:00 MPV 7.9 fl (7.5-11.1) 12/28/18 08:00 Sodium 137 mmol/L (136-145) 12/28/18 08:00 Potassium 4.0 mmol/L (3.5-5.1) 12/28/18 08:00 Chloride 101 mmol/L (98-107) 12/28/18 08:00 Carbon Dioxide 28 mmol/L (21-32) 12/28/18 08:00 Anion Gap 8 MMOL/L (8-16) 12/28/18 08:00 BUN 15.3 mg/dL (7-18) 12/28/18 08:00 Creatinine 0.8 mg/dL (0.55-1.3) 12/28/18 08:00 Est GFR (CKD-EPI)AfAm 130.42 12/28/18 08:00 Est GFR (CKD-EPI)NonAf 112.53 12/28/18 08:00 Random Glucose 99 mg/dL (74-106) 12/28/18 08:00 Calcium 9.1 mg/dL (8.5-10.1) 12/28/18 08:00 Total Bilirubin 0.9 mg/dL (0.2-1) 12/28/18 08:00 AST 73 U/L (15-37) H 12/28/18 08:00 ALT 44 U/L (13-61) 12/28/18 08:00 Alkaline Phosphatase 115 U/L (45-117) 12/28/18 08:00 Total Protein 7.0 g/dl (6.4-8.2) 12/28/18 08:00 Albumin 4.0 g/dl (3.4-5.0) 12/28/18 08:00 RPR Titer Nonreactive (NONREACTIVE) 12/28/18 08:00 HIV 1&2 Antibody Screen Negative 12/29/18 05:55 HIV P24 Antigen Negative 12/29/18 05:55 lab noted - Treatment Hospital Course: Detox Protocol Followed, Detoxed Safely, Responded well, Discharged Condition Good, Rehab Referral Accepted Patient has Accepted a Rehab Referral to: [facility] - Medication Discharge Medications: Ambulatory Orders NK [No Known Home Medication] 08/02/18 - Diagnosis (1) Alcohol dependence with uncomplicated withdrawal Current Visit: Yes Status: Acute (2) HTN (hypertension) Current Visit: Yes Status: Chronic Qualifiers: Hypertension type: essential hypertension Qualified Code(s): I10 - Essential (primary) hypertension (3) Nicotine dependence, uncomplicated Current Visit: Yes Status: Acute Qualifiers: Nicotine product type: cigarettes Qualified Code(s): F17.210 - Nicotine dependence, cigarettes, uncomplicated (4) Substance induced mood disorder Current Visit: Yes Status: Suspected - AMA Did Patient Leave Against Medical Advice: No
[2018-12-30] MEDS ORDERED: chlordiazePOXIDE HCL 10 MG CAPSULE PO SCH (23:00)
== END 2018-12-30 14:10 | disposition home or self-care (01) | DRG 775 ==
LOC: YASAS 16:31 → Y3N 22:54
PROVIDERS: ADMIT Surgery; ATTEND Surgery
PROC: HZ2ZZZZ Detoxification Services for Substance Abuse Treatment (ICD-10-PCS; principal; 2018-12-27)
DX: F10.230 Alcohol dependence with withdrawal, uncomplicated (principal); F17.210 Nicotine dependence, cigarettes, uncomplicated; F19.24 Other psychoactive substance dependence with psychoactive substance-induced mood disorder; F32.9 Major depressive disorder, single episode, unspecified; R45.89 Other symptoms and signs involving emotional state; Z91.89 Other specified personal risk factors, not elsewhere classified; Z91.81 History of falling; Z91.19 Patient's noncompliance with other medical treatment and regimen; Z59.0 Homelessness
CPT/HCPCS: 36415; 80053; 85027; 86593; 87389; Q0162

== ENCOUNTER 2023-11-27 12:38 | Inpatient (IN) | payer OTHER ==
[2023-11-27 13:52] VITALS: BMI 19.4
[2023-11-27] MEDS ORDERED: POLYETHYLENE GLYCOL (HEALTHYLAX) 3350 17 GM PACKET PO PRN (13:58)
[2023-11-27] MEDS ORDERED: IBUPROFEN 400 MG TABLET (FP) PO PRN (13:58)
[2023-11-27] MEDS ORDERED: BENZOCAINE/MENTHOL (CHLORASEPTIC ) LOZENGE MM PRN (13:58)
[2023-11-27] MEDS ORDERED: ACETAMINOPHEN 325 MG TABLET (FP) PO PRN (13:58)
[2023-11-27] MEDS ORDERED: DICYCLOMINE HCL 10 MG CAPSULE PO PRN (13:58)
[2023-11-27] MEDS ORDERED: NALOXONE HCL (KLOXXADO) 8 MG SPRAY NS PRN (13:58)
[2023-11-27] MEDS ORDERED: LOPERAMIDE HCL 2 MG CAPSULE PO PRN (13:58)
[2023-11-27] MEDS ORDERED: MAGNESIUM HYDROX 2400MG/30ML ORAL SUSPENSION 30 ML CUP PO PRN (13:58)
[2023-11-27] MEDS ORDERED: MAG HYDROX/AL HYDROX/SIMETH 30 ML UNIT-DOSE CUP PO PRN (13:58)
[2023-11-27] MEDS ORDERED: guaiFENesin 600 MG TABLET.ER (FP) PO PRN (13:58)
[2023-11-27] MEDS ORDERED: NALOXONE HCL 0.4 MG/ML VIAL IM PRN (13:58)
[2023-11-27] MEDS ORDERED: BENZONATATE 200 MG CAPSULE PO PRN (13:58)
[2023-11-27] MEDS ORDERED: BISMUTH SUBSALICYLATE 262 MG/15 ML BTL PO PRN (13:58)
[2023-11-27] MEDS ORDERED: PRENATAL VITAMINS W/ FOLIC ACID TABLET (FP) PO ONE (14:47)
[2023-11-27] MEDS ORDERED: LORazepam 2 MG TABLET ONE (14:47)
[2023-11-27] MEDS ORDERED: NICOTINE 21 MG/24 HOURS TOPICAL PATCH ONE (14:47)
[2023-11-27] MEDS: NICOTINE 21 MG/24 HOURS TOPICAL PATCH TD SCH (14:49)
[2023-11-27] MEDS: LORazepam 2 MG TABLET PO ONE (14:50)
[2023-11-27] MEDS: PRENATAL VITAMINS W/ FOLIC ACID TABLET (FP) PO SCH (14:50)
[2023-11-27] MEDS: LORazepam 2 MG TABLET PO SCH (17:54)
[2023-11-27] MEDS: LORazepam 1 MG TABLET PO PRN (19:49)
[2023-11-27] MEDS: METHOCARBAMOL 500 MG TABLET PO PRN (19:49)
[2023-11-27] MEDS: THIAMINE 100 MG TABLET PO SCH (22:08)
[2023-11-27] MEDS: MELATONIN 5 MG TABLETS PO SCH (22:08)
[2023-11-28 09:53] LABS: CHLORIDE 102 mmol/L (98-107); SODIUM 137 mmol/L (136-145)
[2023-11-28 09:55] LABS: HEMATOCRIT 41.5 % (35.4-49); HEMOGLOBIN 14.5 GM/dL (11.7-16.9); MCH 35.6 pg (25.7-33.7); MEAN CELL VOLUME 101.8 fl (80-96); MEAN PLT VOLUME 7.6 fl (7.5-11.1); PLATELET COUNT 278 10^3/uL (134-434); RBC 4.08 M/mm3 (4.00-5.60); WHITE BLOOD COUNT 4.2 K/mm3 (4.0-10.0)
[2023-11-28 10:10] LABS: ALBUMIN 3.5 g/dl (3.4-5.0); CALCIUM 9.4 mg/dL (8.5-10.1)
[2023-11-28 10:11] LABS: ANION GAP 8 mmol/L (4-13); BLOOD UREA NITROGEN 11.7 mg/dL (7-18); CO2 27 mmol/L (21-32); GLUCOSE,RANDOM 101 mg/dL (74-106)
[2023-11-28 10:12] LABS: CREATININE 0.7 mg/dL (0.55-1.3); SGOT/AST 50 U/L (15-37); SGPT/ALT 48 U/L (13-61)
[2023-11-28 10:13] LABS: TOT PROT 6.8 g/dl (6.4-8.2)
[2023-11-28 10:14] LABS: ALK PHOS 79 U/L (45-117)
[2023-11-28] MEDS: ONDANSETRON *ODT* 4 MG TABLET SL PRN (10:17)
[2023-11-28 10:19] LABS: BILIRUBIN,TOTAL 0.7 mg/dL (0.2-1)
[2023-11-28] MEDS: TRIMETHOBENZAMIDE HCL 200MG/2ML INJ IM PRN (13:35)
[2023-11-28] MEDS ORDERED: chlordiazePOXIDE HCL 25 MG CAPSULE PO PRN (14:13)
[2023-11-28] MEDS: amLODIPine BESYLATE 5 MG TABLET (FP) PO SCH (14:45)
[2023-11-28] MEDS: IBUPROFEN 600 MG TABLET (FP) PO PRN (17:21)
[2023-11-28] MEDS: hydrOXYzine PAMOATE 25 MG CAPSULE (FP) PO PRN (17:21)
[2023-11-28] MEDS: chlordiazePOXIDE HCL 25 MG CAPSULE PO SCH (17:21)
[2023-11-28] MEDS: LACTULOSE 20 GM/30 ML UDC (FOR ORAL USE ONLY) PO SCH (19:01)
[2023-11-28] MEDS: SUVOREXANT 10 MG TABLET PO PRN (22:16)
[2023-11-29] MEDS ORDERED: LORazepam 1 MG TABLET PO SCH (05:00)
[2023-11-29 13:13] VITALS: BP 128/89; PULSE 85; RESP 16; TEMP 97.7
[2023-11-30] MEDS ORDERED: LORazepam 0.5 MG TABLET PO PRN
[2023-11-30] MEDS ORDERED: chlordiazePOXIDE HCL 25 MG CAPSULE PO SCH (05:00)
[2023-11-30] MEDS ORDERED: LORazepam 0.5 MG TABLET PO SCH (05:00)
[2023-12-01] MEDS ORDERED: chlordiazePOXIDE HCL 10 MG CAPSULE PO PRN
[2023-12-01] MEDS ORDERED: LORazepam 0.5 MG TABLET PO ONE (05:00)
[2023-12-01] MEDS ORDERED: chlordiazePOXIDE HCL 10 MG CAPSULE PO SCH (05:00)
[2023-12-02] MEDS ORDERED: chlordiazePOXIDE HCL 10 MG CAPSULE PO SCH (05:00)
[2023-12-03] MEDS ORDERED: chlordiazePOXIDE HCL 10 MG CAPSULE PO ONE (05:00)
== END 2023-11-29 14:14 | disposition left against medical advice (07) | DRG 770 ==
LOC: YASAS 12:38 → Y6N 14:22
PROVIDERS: ADMIT Allergy & Immunology; ATTEND Surgery
PROC: HZ2ZZZZ Detoxification Services for Substance Abuse Treatment (ICD-10-PCS; principal; 2023-11-27)
DX: F10.230 Alcohol dependence with withdrawal, uncomplicated (principal); F17.210 Nicotine dependence, cigarettes, uncomplicated; F10.24 Alcohol dependence with alcohol-induced mood disorder; F41.9 Anxiety disorder, unspecified; F32.A Depression, unspecified; G47.00 Insomnia, unspecified; I10 Essential (primary) hypertension; R79.89 Other specified abnormal findings of blood chemistry; Z86.59 Personal history of other mental and behavioral disorders
CPT/HCPCS: 36415; 80053; 80305; 80307; 82140; 85027; 86780; 93005; 93010; Q0162